=== PATIENT | female | born 1990 | race Caucasian/White ===

== ENCOUNTER 2022-10-30 10:38 | Outpatient (AMB) | payer OTHER, SELFPAY ==
--- NOTE | 2022-10-30 10:42 | MHC.PC.OV ---
Vital Signs 10/30/22 10:43 Height 5 ft 6 in Weight 157 lb BMI 25.3 BP 118/70 Blood Pressure Location Rt brachial Position Sitting Pulse 74 Pulse Source Pulse Oximeter Pulse Oximetry (%) 98 Oxygen Delivery Method Room Air Intake Visit Reasons: finger pain left hand Allergies Environmental Allergy (Unknown, Uncoded 08/31/17 00:00) Medication List - Last Reconciled 10/30/22 by Loc Cruz MD albuterol sulfate 90 mcg/actuation (ProAir HFA) 1 inh inhalation QID PRN 30 days cetirizine (Zyrtec) 10 mg PO DAILY PRN 90 days Tobacco use date assessed: 10/30/22 Dental Screening Dental Screen Date: 10/30/22 Did you have a dental visit in the last 12 months?: No Did you have a dental problem in the last 6 months where you did not have access to dental care?: No Was dental information given to patient?: Patient has dentist HPI finger pain left hand HPI Details Patient is 32-year-old female who was last seen last year Came in today with few medical problems to talk about. Patient have developed rash on her hands left more than right which is pruritic irritated and inflamed now She works with liquids and also wear gloves. She is not sure if she is sensitive to latex For now I am treating her with prednisone and antibiotic to control the rash and then she will use the cream especially at night Patient also suffer from anxiety disorder, she has to autistic children 1 of them just started school when it was 1st day of school patient had another episode of shortness of breath and tingling in her right arm She fears leaving the house and worry a lot about her children. When she was younger she was treated with Lexapro it did help but she did not like the way she was feeling well taking the medication, she felt as if she had no emotions. She is willing to try medication again I have sent fluoxetine 10 mg capsules Patient also have a history of migraine headache 3 or 4 times a month and she is requesting of appointment with the neurologist to talk about it. She will return in 3 weeks for follow-up. She is also due for physical exam PFSH Family History Mother Mental health disorder Social History Housing: Apartment Patient Tobacco Use Status: Never used Tobacco e-Cigarette/Vaping Use: Never Used service: No Current occupational status: unemployed Cognitive needs: No Hearing needs: No Vision needs: No Questionnaire PHQ-9 Over the last 2 weeks, how often have you been bothered by any of the following problems? 1. Little interest or pleasure in doing things: not at all 2. Feeling down, depressed, or hopeless: not at all 3. Trouble falling or staying asleep, or sleeping too much: more than half the days 4. Feeling tired or having little energy: several days 5. Poor appetite or overeating: not at all 6. Feeling bad about yourself - or that you are a failure or have let yourself or your family down: not at all 7. Trouble concentrating on things, such as reading the newspaper or watching television: not at all 8. Moving or speaking so slowly that other people could have noticed. Or the opposite - being so fidgety or restless that you have been moving around a lot more than usual: not at all 9. Thoughts that you would be better off or of hurting yourself in some way: not at all Total score: 3 Depression Screening Interpretation: Negative 56252 - PHQ-9 Billing: Yes Source: Developed by Drs. Omar Lopez, Blanca Arnold, Rex Daugherty and colleagues, with an educational migdalia from [employer]. Thrive Questionnaire Date Thrive assessed: 10/30/22 I am a: Patient What is your living situation today?: I have a steady place to live Within the past 12 months, did the food you bought not last and you didn't have the money to get more?: Never true Within the past 12 months, did you worry whether your food would run out before you got money to buy more?: Never true Do you have trouble paying for medicines?: No Do you have trouble getting transportation to medical appointments?: No Do you have trouble paying your heating and electricity bill?: No Do you have trouble taking care of your child, family member or friend?: No Do you have trouble with day-to-day activities such as bathing, preparing meals, shopping, managing finances, etc.?: No Are you currently unemployed and looking for a job?: No Are you interested in more education?: Yes AUDIT C Alcohol Use Questionnaire (AUDIT-C) 1. How often do you have a drink containing alcohol?: 2-4 times a month 2. How many drinks containing alcohol do you have on a typical day when you are drinking?: 1 or 2 3. How often do you have six or more drinks on one occasion?: Never Total Score: 2 Score Reviewed/Action Taken: Yes LINETTE-7 AMB Questionnaire LINETTE-7 Date LINETTE - 7 assessed: 10/30/22 Feeling nervous, anxious, or on edge: 1 = Several days Not being able to stop or control worryin = Not at all Worrying too much about different things: 1 = Several days Trouble relaxin = Several days Being so restless that it is hard to sit still: 0 = Not at all Becoming easily annoyed or irritable: 0 = Not at all Feeling afraid as if something awful might happen: 0 = Not at all Total LINETTE-7 score (0-4 normal; 5-9 mild; 10-14 moderate; 15-21 severe): 3 Source: Developed by Drs. Omar Lopez, Blanca Arnold, Rex Daugherty and colleagues, with an educational migdalia from [employer]. LINETTE-7 Assessment Billing LINETTE-7 Assessment Tool: LINETTE-7 Assessment 67789 Review of Systems Const Denies chills and Denies fever(s) ENT Denies epistaxis and Denies nasal discharge Card Denies chest pain Resp Denies chest congestion, Denies cough and Denies hemoptysis GI Denies diarrhea and Denies nausea Neuro Reports no additional complaints Psych Reports no additional complaints Endo Reports no additional complaints Physical exam (Primary Care) Vital Signs: Last Vital Signs Pulse 74 10/30/22 10:43 BP 118/70 10/30/22 10:43 Pulse Ox 98 10/30/22 10:43 Oxygen Delivery Method Room Air 10/30/22 10:43 BMI result Body Mass Index 25.3 Tobacco/Smoking Status: Tobacco use Status Tobacco use date assessed 10/30/22 10/30/22 10:47 Patient Tobacco Use Status Never used Tobacco 10/30/22 10:47 e-Cigarette/Vaping Use Never Used 10/30/22 10:47 PHQ-9: PHQ-9 Score PHQ-9: Total score 3 10/30/22 11:17 Depression Screening Interpretation: Negative Thrive Assessment: Date of Thrive Assessment Date Thrive assessed 10/30/22 10/30/22 11:17 Const General: cooperative, comfortable and no acute distress Orientation/consciousness: patient oriented x3 HENMT Head: Yes normocephalic Eyes General: appearance normal, both eyes and all related structures Neck Neck: Yes supple Resp Effort & Inspection: normal respiratory effort, no cough and no stridor Skin General skin exam: turgor normal Neuro General: patient oriented x3, tone normal and moves all extremities Extrem Hand/finger images: 1. Physical ear maculopapular rash 2. Similar rash on right side but not as extensive 3. Similar rash extending into palm Right lower extremity: no edema Left lower extremity: no edema Assessment and Plan Assessment & Plan (1) Pruritic rash: Code(s): L28.2 - Other prurigo (2) Dermatitis: Code(s): L30.9 - Dermatitis, unspecified (3) Migraine headache without aura: Code(s): G43.009 - Migraine without aura, not intractable, without status migrainosus (4) Neurosis, anxiety, panic type: Code(s): F41.0 - Panic disorder [episodic paroxysmal anxiety] Plan Patient is 32-year-old female who was last seen last year Came in today with few medical problems to talk about. Patient have developed rash on her hands left more than right which is pruritic irritated and inflamed now She works with liquids and also wear gloves. She is not sure if she is sensitive to latex For now I am treating her with prednisone and antibiotic to control the rash and then she will use the cream especially at night Patient also suffer from anxiety disorder, she has to autistic children 1 of them just started school when it was 1st day of school patient had another episode of shortness of breath and tingling in her right arm She fears leaving the house and worry a lot about her children. When she was younger she was treated with Lexapro it did help but she did not like the way she was feeling well taking the medication, she felt as if she had no emotions. She is willing to try medication again I have sent fluoxetine 10 mg capsules Patient also have a history of migraine headache 3 or 4 times a month and she is requesting of appointment with the neurologist to talk about it. She will return in 3 weeks for follow-up. She is also due for physical exam Orders: Referrals Neurology Referral G43.009 - Migraine without aura, not intractable, without status migrainosus Medications: New prednisone 10 mg PO DAILY 5 tabs 0RF 5 days amoxicillin-pot clavulanate 875-125 mg 1 tab PO BID 10 tabs 0RF 5 days fluoxetine 10 mg PO DAILY 30 caps 0RF triamcinolone acetonide 0.1% 1 appl topical DAILY 80 grams 0RF Rash and 30 days Coding Level of Care Code Est Pt Level 4 (83899) Diagnoses Pruritic rash L28.2 Dermatitis L30.9 Migraine headache without aura G43.009 Neurosis, anxiety, panic type F41.0 Additional Codes LINETTE-7 Assessment Billing - LINETTE-7 Assessment Tool: LINETTE-7 Assessment 64865 ([id number])
[2022-10-30 10:43] VITALS: BP 118/70; PULSE 74; O2SAT 98; BMI 25.3
== END 2022-10-30 12:24 | disposition home or self-care (01) ==
PROVIDERS: PCP Internal Medicine; Visit Provider Internal Medicine
DX: G43.009 Migraine without aura, not intractable, without status migrainosus (principal); L28.2 Other prurigo; L30.9 Dermatitis, unspecified; F41.0 Panic disorder [episodic paroxysmal anxiety]
CPT/HCPCS: 99214

== ENCOUNTER 2023-01-18 08:47 | Outpatient (AMB) | payer OTHER, SELFPAY ==
[2023-01-18 10:33] VITALS: BP 118/72; PULSE 78; TEMP 36.6; O2SAT 98; BMI 25.5
--- NOTE | 2023-01-18 10:33 | MHC.OFFWIV ---
Intake Vital Signs 01/18/23 10:33 Height 5 ft 6 in Weight 158 lb BMI 25.5 BP 118/72 Blood Pressure Location Rt brachial Position Sitting Pulse 78 Pulse Source Pulse Oximeter Temp 97.8 F Temp Source Temporal Artery Scan Pulse Oximetry (%) 98 Intake Visit Reasons: EP Lft ear pain hearing loss Intake Note: pt is here for c/o left ear pain since wednesday, hearing impaired Patient Tobacco Use Status: Never used Tobacco Allergies Environmental Allergy (Unknown, Uncoded 01/18/23 10:56) Unknown Medication List - Last Reconciled 01/18/23 by Mekhi Le MD albuterol sulfate 90 mcg/actuation (ProAir HFA) 1 inh inhalation QID PRN 30 days Do you need a note to return to daycare/school/sports/work: Yes HPI EP Lft ear pain hearing loss HPI Details Patient presents for a sick visit. Reporting symptoms of sinus congestion, sore throat and difficulty swallowing. Low-grade fever. No family member is sick. No recent travel. Patient reports symptoms of malaise and fatigue. PFSH Family History Mother Mental health disorder Housing: Apartment Patient Tobacco Use Status: Never used Tobacco e-Cigarette/Vaping Use: Never Used service: No Current occupational status: unemployed Cognitive needs: No Hearing needs: No Vision needs: No Physical Exam Vital Signs: Last Vital Signs Temp 97.8 F 01/18/23 10:33 Pulse 78 01/18/23 10:33 BP 118/72 01/18/23 10:33 Pulse Ox 98 01/18/23 10:33 BMI result Body Mass Index 25.5 Const General: cooperative and healthy appearing Nutritional Appearance: well nourished Orientation/consciousness: patient oriented x3 Limitations: no limitations HEENT Head: Yes normal to inspection Eyes General: appearance normal, both eyes and all related structures Neck Neck: Yes normal visual inspection Chest Chest palpation & inspection: normal palpation of entire chest wall Resp Effort & Inspection: normal respiratory effort Neuro General: patient oriented x3 Assessment & Plan Assessment & Plan (1) Upper respiratory tract infection: Code(s): J06.9 - Acute upper respiratory infection, unspecified Plan: Antibiotics ordered. Increase fluid intake. Tylenol for aches and pains. If symptoms worsen, follow-up here for a recheck. Coding Level of Care Code Est Pt Level 3 (35358) Diagnoses Upper respiratory tract infection J06.9
== END 2023-01-18 11:04 | disposition home or self-care (01) ==
PROVIDERS: PCP Internal Medicine; Visit Provider Internal Medicine
DX: J06.9 Acute upper respiratory infection, unspecified (principal)
CPT/HCPCS: 99213

== ENCOUNTER 2023-05-28 09:58 | Outpatient (AMB) | payer OTHER, SELFPAY ==
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
[2023-05-28 10:02] VITALS: PULSE 72; O2SAT 98; BMI 25.3
== END 2023-05-28 11:27 | disposition home or self-care (01) ==
PROVIDERS: PCP Internal Medicine; Visit Provider Nurse Practitioner Family
DX: R51.9 Headache, unspecified (principal); R55 Syncope and collapse; R25.2 Cramp and spasm
CPT/HCPCS: 99204

== ENCOUNTER → 2023-05-28 09:58 | Outpatient (BNVA) | payer OTHER, SELFPAY | PROVIDERS: PCP Internal Medicine; Visit Provider Nurse Practitioner Family | DX: R51.9 Headache, unspecified (principal); R55 Syncope and collapse; R25.2 Cramp and spasm | CPT/HCPCS: 99202 ==

== ENCOUNTER 2023-06-02 09:13 | Outpatient (REF) | payer OTHER, SELFPAY ==
[2023-06-02 17:24] LABS: Iron 111 mcg/dL (30-160); Magnesium 2.2 mg/dL (1.6-2.6); Percent Iron Saturation 37 % (15-50); Total Iron Binding Capacity 300 mcg/dL (228-428); Unsaturated Iron Binding 189 ug/dL
[2023-06-02 17:26] LABS: Estimated Average Glucose 105 mg/dL; Hemoglobin A1c % 5.3 % (<6.0)
[2023-06-02 17:40] LABS: Ferritin 95 ng/mL (10-122)
[2023-06-02 18:52] LABS: Rheumatoid Factor < 13.0 IU/mL (<15.0)
[2023-06-02 19:04] LABS: Folate 11.2 ng/mL (> or = 4.0); Vitamin B12 371 pg/mL (200-900)
[2023-06-02 19:50] LABS: Erythrocyte Sedimentation Rate 8 MM/HR (0-20)
[2023-06-03 14:37] LABS: CRP High Sensitivity 1.3 mg/L
[2023-06-05 14:09] LABS: Vitamin D 25-OH, D2 <4 ng/mL; Vitamin D 25-OH, D3 19 ng/mL; Vitamin D 25-OH, Total 19 ng/mL (30-100)
[2023-06-06 10:54] LABS: Anti Nuclear Antibody Screen NEGATIVE (NEGATIVE)
== END 2023-06-02 09:14 | disposition home or self-care (01) ==
LOC: HO.HKASLDS 09:13
PROVIDERS: Visit Provider Nurse Practitioner Family
DX: R51.9 Headache, unspecified (principal); R55 Syncope and collapse; R06.02 Shortness of breath; L30.9 Dermatitis, unspecified; R20.2 Paresthesia of skin; R25.2 Cramp and spasm
CPT/HCPCS: 36415; 82306; 82550; 82607; 82728; 82746; 83036; 83540; 83735; 84443; 85652; 86038; 86141; 86431

== ENCOUNTER → 2024-06-06 09:29 | Outpatient (AMB) | payer OTHER, SELFPAY ==
[2024-06-06 09:37] VITALS: BP 132/98; PULSE 87; O2SAT 97; BMI 25.6
--- NOTE | 2024-06-06 09:37 | A.OFFPC_ITS ---
Vital Signs 06/06/24 09:37 Height 5 ft 6 in Weight 158 lb 8 oz BMI 25.6 BP 132/98 H Blood Pressure Location Lt brachial Position Sitting Pulse 87 Pulse Source Pulse Oximeter Pulse Oximetry (%) 97 Oxygen Delivery Method Room Air Intake Visit Reasons: knee/leg pain Allergies Environmental Allergy (Unknown, Uncoded 05/28/23 10:04) Unknown Medication List - Last Reconciled 06/06/24 by Loc Cruz MD albuterol sulfate 90 mcg/actuation (ProAir HFA) 1 inh inhalation QID PRN 30 days Tobacco use date assessed: 06/06/24 Dental Screening Dental Screen Date: 06/06/24 Did you have a dental visit in the last 12 months?: No Did you have a dental problem in the last 6 months where you did not have access to dental care?: No Was dental information given to patient?: Patient has dentist HPI knee/leg pain HPI Details History - The patient is a 34-year-old female pr esenting with persistent bilateral knee pain. - Initially, the pain was localized to t he right knee and has recently been experienced in the left knee as well. - The pain occurs spontaneously during a ctivities such as sitting regularly or driving, radiating from the knee down the legs, and has been persistent at times. - The onset of knee pain began approxima tely a month and a half ago, first noted primarily in the right knee before involving the left knee. - The episodes of pain have been describ ed as recurring, with symptom alleviation occurring after short rest periods, but persistent episodes lasted over a weekend. - The patient denies any associated swel ling or tenderness upon palpation. - No additional joint involvement noted, except for occasional shoulder discomfort attributed to sleeping position. - The patient has a family history notab le for breast cancer and high blood pressure. - It is noted that a low Vitamin D level was identified previously, and no supplementation has been initiated by the patient. Problem List - Bilateral Knee Pain migratory Patient Instructions - Begin Vitamin D supplementation as pre viously discussed due to low levels. - Return tomorrow for scheduled blood wo rk, including testing for Lyme disease and lupus. - Monitor symptoms of knee pain and repo rt any changes or increases in pain, swelling, or other concerning symptoms. - There is no need to fast before tomorr ow's blood work; attend the lab between 6:30 AM and 3:30 PM at your convenience. - Continue daily activities as tolerated and avoid any activities that exacerbate knee pain. Review of Systems - General: No fever no chills - Neurological: No headaches no dizziness - Ear nose throat: No sore throat no hearing difficulty no ear pain - Cardiovascular: No syncope, no chest pain, no palpitations - Gastrointestinal: No nausea vomiting or diarrhea - Endocrine: No polyuria polydipsia no heat intolerance - Genitourinary: No dysuria , no blood in urine Physical Exam General: No acute distress HEENT: No acute findings Neck: Supple Respiratory system: Able to talk in full sentences, no audible wheeze Cardiovascular: S1-S2 regular in rate and rhythm Gastrointestinal: No pain Extremities: No pain in knees at this time, no swelling, no tenderness on palpation CHIEF PRIVACY OFFICER: Alert awake oriented x3 motor sensory intact Skin: Normal turgor PFSH Family History Mother Mental health disorder Breast cancer in female Social History Housing: Apartment Patient Tobacco Use Status: Never used Tobacco e-Cigarette/Vaping Use: Never Used service: No Current occupational status: unemployed Cognitive needs: No Hearing needs: No Vision needs: No Questionnaire PHQ-9 Over the last 2 weeks, how often have you been bothered by any of the following problems? 02736 - PHQ-9 Billing: Patient declined-do not bill Source: Developed by Drs. Omar Lopez, Blanca Arnold, Rex Daugherty and colleagues, with an educational migdalia from [employer]. Thrive Questionnaire Date Thrive assessed: 06/06/24 I am a: Patient What is your living situation today?: I have a steady place to live Within the past 12 months, did the food you bought not last and you didn't have the money to get more?: Never true Within the past 12 months, did you worry whether your food would run out before you got money to buy more?: Never true Do you have trouble paying for medicines?: No Do you have trouble getting transportation to medical appointments?: No Do you have trouble paying your heating and electricity bill?: No Do you have trouble taking care of your child, family member or friend?: No Do you have trouble with day-to-day activities such as bathing, preparing meals, shopping, managing finances, etc.?: No Are you currently unemployed and looking for a job?: No Are you interested in more education?: No Please select the resources that you would like help with: None Currently or been in a relationship where the following occur: No concerns reported THRIVE Score: 0 AUDIT C Alcohol Use Questionnaire (AUDIT-C) 1. How often do you have a drink containing alcohol?: 2-4 times a month 2. How many drinks containing alcohol do you have on a typical day when you are drinking?: 1 or 2 3. How often do you have six or more drinks on one occasion?: Never Total Score: 2 Score Reviewed/Action Taken: Yes LINETTE-7 AMB Questionnaire LINETTE-7 Date LINETTE - 7 assessed: 06/06/24 Feeling nervous, anxious, or on edge: 0 = Not at all Not being able to stop or control worryin = Not at all Worrying too much about different things: 0 = Not at all Trouble relaxin = Not at all Being so restless that it is hard to sit still: 0 = Not at all Becoming easily annoyed or irritable: 0 = Not at all Feeling afraid as if something awful might happen: 0 = Not at all Total LINETTE-7 score (0-4 normal; 5-9 mild; 10-14 moderate; 15-21 severe): 0 Source: Developed by Drs. Omar Lopez, Blanca Arnold, Rex Daugherty and colleagues, with an educational migdalia from [employer]. LINETTE-7 Assessment Billing LINETTE-7 Assessment Tool: LINETTE-7 Assessment 21641 Physical exam (Primary Care) Vital Signs: Last Vital Signs Pulse 87 06/06/24 09:37 BP 132/98 H 06/06/24 09:37 Pulse Ox 97 06/06/24 09:37 Oxygen Delivery Method Room Air 06/06/24 09:37 BMI result Body Mass Index 25.6 Tobacco/Smoking Status: Tobacco use Status Tobacco use date assessed 06/06/24 06/06/24 09:40 Patient Tobacco Use Status Never used Tobacco 06/06/24 09:40 e-Cigarette/Vaping Use Never Used 06/06/24 09:40 Thrive Assessment: Date of Thrive Assessment Date Thrive assessed 06/06/24 06/06/24 09:40 Currently or been in a relationship where the following occur: No concerns reported Coding Level of Care Code Est Pt Level 4 (89137) 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 - Initially, the pain was localized to the right knee and has recently been experienced in the left knee as well. - The pain occurs spontaneously during activities such as sitting regularly or driving, radiating from the knee down the legs, and has been persistent at times. - The onset of knee pain began approximately a month and a half ago, first noted primarily in the right knee before involving the left knee. - The episodes of pain have been described as recurring, with symptom alleviation occurring after short rest periods, but persistent episodes lasted over a weekend. - The patient denies any associated swelling or tenderness upon palpation. - No additional joint involvement noted, except for occasional shoulder discomfort attributed to sleeping position. - The patient has a family history notable for breast cancer and high blood pressure. - It is noted that a low Vitamin D level was identified previously, and no supplementation has been initiated by the patient. Problem List - Bilateral Knee Pain migratory Patient Instructions - Begin Vitamin D supplementation as previously discussed due to low levels. - Return tomorrow for scheduled blood work, including testing for Lyme disease and lupus. - Monitor symptoms of knee pain and report any changes or increases in pain, swelling, or other concerning symptoms. - There is no need to fast before tomorrow's blood work; attend the lab between 6:30 AM and 3:30 PM at your convenience. - Continue daily activities as tolerated and avoid any activities that exacerbate knee pain. Orders: Orders Venous Lead Today M13.80 - Other specified arthritis, unspecified site C Reactive Protein Today M13.80 - Other specified arthritis, unspecified site Lyme IgG/IgM w/reflex to WB Today M13.80 - Other specified arthritis, unspecified site Complete Blood Count Auto Diff Today M13.80 - Other specified arthritis, unspecified site Comprehensive Met. Panel Today M13.80 - Other specified arthritis, unspecified site Vitamin D 25-OH (D2 and D3) Today M13.80 - Other specified arthritis, unspecified site TSH reflex Free T4 Today M13.80 - Other specified arthritis, unspecified site Erythrocyte Sedimentation Rate Today M13.80 - Other specified arthritis, unspecified site Anti DNA DS Antibody Today M13.80 - Other specified arthritis, unspecified site, R76.8 - Other specified abnormal immunological findings in serum Medications: New cholecalciferol (vitamin D3) 25 mcg PO DAILY 90 caps 1RF 90 days
== END ==
LOC: HO.HMCC 09:29
PROVIDERS: PCP Internal Medicine; Visit Provider Internal Medicine
DX: M13.80 Other specified arthritis, unspecified site (principal); E55.9 Vitamin D deficiency, unspecified

== ENCOUNTER → 2024-06-06 09:29 | Outpatient (BNVA) | payer OTHER, SELFPAY | PROVIDERS: PCP Internal Medicine; Visit Provider Internal Medicine | DX: M25.561 Pain in right knee (principal); M25.562 Pain in left knee; M13.80 Other specified arthritis, unspecified site; E55.9 Vitamin D deficiency, unspecified; R76.8 Other specified abnormal immunological findings in serum | CPT/HCPCS: 96127; 99212 ==

== ENCOUNTER 2024-06-07 09:32 | Outpatient (REF) | payer OTHER, SELFPAY ==
[2024-06-07 13:20] LABS: MANUAL DIFF FLAG NO
[2024-06-07 13:21] LABS: Basophils Absolute Auto 0.1 X10*3/uL (0.0-0.2); Basophils Percent Auto 0.8 % (0-2); Eosinophils Absolute Auto 0.1 X10*3/uL (0.0-0.4); Hematocrit 42.9 % (37.0-47.0); Hemoglobin 14.7 g/dl (12.0-16.0); Imm Gran Abs Auto 0.02 X10*3/uL (0.00-0.03); Imm Gran Pct Auto 0.3 % (0.0-0.4); Lymphocytes Absolute Auto 1.9 X10*3/uL (1.2-4.9); Mean Corpuscular HGB Conc 34.3 g/dl (31.0-35.0); Mean Corpuscular Hemoglobin 30.7 pg (27.0-33.0); Mean Corpuscular Volume 89.6 fL (80.0-98.0); Monocytes Absolute Auto 0.6 X10*3/uL (0.1-1.2); Monocytes Percent Auto 10.2 % (2-11); Neutrophils Absolute Auto 3.3 x10*3/uL (2.0-8.3); Neutrophils Percent Auto 55.7 % (45-73); Platelet Count 194 X10*3/uL (160-400); Red Blood Count 4.79 X10*6/uL (4.20-5.50); Red Cell Distribution Width 12.1 % (11.0-16.0); White Blood Count 5.9 X10*3/uL (4.8-10.8)
[2024-06-07 13:57] LABS: Erythrocyte Sedimentation Rate 5 MM/HR (0-20)
[2024-06-07 13:58] LABS: Alanine Aminotransferase 23 U/L (0-31); Albumin Level 4.8 g/dL (3.5-5.0); Alkaline Phosphatase 58 U/L (39-117); Anion Gap 12 (12-20); Aspartate Amino Transferase 22 U/L (5-31); Bilirubin Total 0.4 mg/dL (0.0-1.0); Blood Urea Nitrogen 14 mg/dL (9-16); C Reactive Protein < 0.10 mg/dL (< or = 0.50); Calcium 10.2 mg/dL (8.4-10.2); Carbon Dioxide 23 mmol/L (22-29); Chloride 108 mmol/L (96-108); Estimated Glomerular Filt Rate > 60; Glucose Random 95 mg/dL (60-115); Potassium 4.3 mmol/L (3.3-5.1); Sodium 139 mmol/L (135-145); Total Protein 7.6 g/dL (6.5-8.0)
[2024-06-07 14:06] LABS: TSH reflex Free T4 0.68 uIU/mL (0.32-4.0)
[2024-06-08 06:23] LABS: Lyme Abs Screen <0.90 index
[2024-06-08 21:14] LABS: Venous Lead <1.0 mcg/dL (<3.5)
[2024-06-12 14:44] LABS: Vitamin D 25-OH, D2 <4 ng/mL; Vitamin D 25-OH, D3 7 ng/mL; Vitamin D 25-OH, Total 7 ng/mL (30-100)
[2024-06-12 18:29] LABS: Anti DNA DS Antibody <1 IU/mL
== END 2024-06-07 09:33 | disposition home or self-care (01) ==
LOC: HO.HMGCLDS 09:32
PROVIDERS: PCP Internal Medicine; Visit Provider Internal Medicine
DX: M13.80 Other specified arthritis, unspecified site (principal); R76.8 Other specified abnormal immunological findings in serum
CPT/HCPCS: 36415; 80053; 82306; 83655; 84443; 85025; 85652; 86140; 86225; 86617; 86618

== ENCOUNTER 2024-07-04 08:31 | Outpatient (AMB) | payer OTHER, SELFPAY ==
[2024-07-04 08:36] VITALS: BP 118/80; PULSE 89; O2SAT 98; BMI 25.6
--- NOTE | 2024-07-04 08:36 | A.OFFPC_ITS ---
Vital Signs 07/04/24 08:36 Height 5 ft 6 in Weight 158 lb 6 oz BMI 25.6 BP 118/80 Blood Pressure Location Rt brachial Position Sitting Pulse 89 Pulse Source Pulse Oximeter Pulse Oximetry (%) 98 Oxygen Delivery Method Room Air Intake Visit Reasons: follow up/ labs Allergies Environmental Allergy (Unknown, Uncoded 05/28/23 10:04) Unknown Medication List - Last Reconciled 07/04/24 by Loc Cruz MD albuterol sulfate 90 mcg/actuation (ProAir HFA) 1 inh inhalation QID PRN 30 days cholecalciferol (vitamin D3) 25 mcg PO DAILY 90 days Tobacco use date assessed: 06/06/24 Dental Screening Dental Screen Date: 06/06/24 HPI follow up/ labs HPI Details History - The patient is a 34-year-old female pr esenting to go over labs, her knee pain is better, however continued to have some soreness in right knee and leg - The patient reports that the pain is m ostly located on the right side and mentions experiencing it constantly. - There is an improvement noted as the p atient reports that the left side pain is no longer as much of an issue. - She had not been engaging in much phys ical activity with her legs, and the pain modestly improved without active intervention. - Laboratory tests were conducted, and a side from a low vitamin D level, no other abnormalities were found (negative for lupus and Lyme disease; CBC normal, no anemia or deficiencies, kidney function and electrolytes normal, blood sugar normal, liver enzymes normal). - Current vitamin D level is significant ly low, resulting in fatigue and muscle tiredness. - The patient has been self-administerin g 1000 units of vitamin D for about a week. - Additionally, the patient requests the renewal of an inhaler prescription for managing asthma symptoms. Problem List - Vitamin D Deficiency - Chronic Pain in Right Leg/knee, better with OTC NSAIDs - Asthma Patient Instructions - Take high-dose vitamin D once a week f or three months. - After completing the high-dose regimen , continue taking hkqp-lud-[id number] vitamin D at 1000 units daily. - Use naproxen if the leg pain becomes b othersome. - Book a physical exam in six months and expect blood work to be done at that time. - An order for blood tests is in the [facility] tem and will require fasting beforehand. - Continue using the prescribed inhaler as needed. Review of Systems - General: No fever no chills - Neurological: No headaches no dizziness - Ear nose throat: No sore throat no hearing difficulty no ear pain - Cardiovascular: No syncope, no chest pain, no palpitations - Gastrointestinal: No nausea vomiting or diarrhea - Endocrine: No polyuria polydipsia no heat intolerance - Genitourinary: No dysuria , no blood in urine Physical Exam General: No acute distress HEENT: No acute findings Neck: Supple Respiratory system: Able to talk in full sentences, no audible wheeze, requires inhaler Cardiovascular: S1-S2 regular in rate and rhythm Gastrointestinal: No pain Extremities: No swelling of knee no pain with palpation of lower leg STARS ANALYTICAL LEAD: Alert awake oriented x3 motor sensory intact Skin: Normal turgor PFSH Family History Mother Mental health disorder Breast cancer in female Social History Housing: Apartment Patient Tobacco Use Status: Never used Tobacco e-Cigarette/Vaping Use: Never Used service: No Current occupational status: unemployed Cognitive needs: No Hearing needs: No Vision needs: No Questionnaire PHQ-9 Over the last 2 weeks, how often have you been bothered by any of the following problems? 1. Little interest or pleasure in doing things: not at all 2. Feeling down, depressed, or hopeless: not at all 3. Trouble falling or staying asleep, or sleeping too much: not at all 4. Feeling tired or having little energy: not at all 5. Poor appetite or overeating: not at all 6. Feeling bad about yourself - or that you are a failure or have let yourself or your family down: not at all 7. Trouble concentrating on things, such as reading the newspaper or watching television: not at all 8. Moving or speaking so slowly that other people could have noticed. Or the opposite - being so fidgety or restless that you have been moving around a lot more than usual: not at all 9. Thoughts that you would be better off or of hurting yourself in some way: not at all Total score: 0 Depression Screening Interpretation: Negative Depression Screening Done: Yes [id number] - PHQ-9 Billing: Yes Source: Developed by Drs. Omar Lopez, Blanca Arnold, Rex Daugherty and colleagues, with an educational migdalia from [employer]. Thrive Questionnaire Date Thrive assessed: 06/06/24 I am a: Patient What is your living situation today?: I have a steady place to live Within the past 12 months, did the food you bought not last and you didn't have the money to get more?: I choose not to answer this question Within the past 12 months, did you worry whether your food would run out before you got money to buy more?: I choose not to answer this question Do you have trouble paying for medicines?: No Do you have trouble getting transportation to medical appointments?: No Do you have trouble paying your heating and electricity bill?: No Do you have trouble taking care of your child, family member or friend?: No Do you have trouble with day-to-day activities such as bathing, preparing meals, shopping, managing finances, etc.?: No Are you currently unemployed and looking for a job?: No Are you interested in more education?: No Please select the resources that you would like help with: None Currently or been in a relationship where the following occur: I choose not to answer THRIVE Score: 0 AUDIT C Alcohol Use Questionnaire (AUDIT-C) 1. How often do you have a drink containing alcohol?: Monthly or less 2. How many drinks containing alcohol do you have on a typical day when you are drinking?: 1 or 2 3. How often do you have six or more drinks on one occasion?: Monthly Total Score: 3 LINETTE-7 AMB Questionnaire LINETTE-7 Date LINETTE - 7 assessed: 06/06/24 Feeling nervous, anxious, or on edge: 1 = Several days Not being able to stop or control worryin = Not at all Worrying too much about different things: 0 = Not at all Trouble relaxin = Not at all Being so restless that it is hard to sit still: 0 = Not at all Becoming easily annoyed or irritable: 0 = Not at all Feeling afraid as if something awful might happen: 0 = Not at all Total LINETTE-7 score (0-4 normal; 5-9 mild; 10-14 moderate; 15-21 severe): 1 Source: Developed by Drs. Omar Lopez, Blanca Arnold, Rex Daugherty and colleagues, with an educational migdalia from [employer]. Physical exam (Primary Care) Vital Signs: Last Vital Signs Pulse 89 07/04/24 08:36 BP 118/80 07/04/24 08:36 Pulse Ox 98 07/04/24 08:36 Oxygen Delivery Method Room Air 07/04/24 08:36 BMI result Body Mass Index 25.6 Tobacco/Smoking Status: Tobacco use Status Tobacco use date assessed 06/06/24 07/04/24 08:39 Patient Tobacco Use Status Never used Tobacco 07/04/24 08:39 e-Cigarette/Vaping Use Never Used 07/04/24 08:39 PHQ-9: PHQ-9 Score PHQ-9: Total score 0 07/04/24 08:44 Depression Screening Interpretation: Negative Thrive Assessment: Date of Thrive Assessment Date Thrive assessed 06/06/24 07/04/24 08:39 Currently or been in a relationship where the following occur: I choose not to answer Coding Level of Care Code Est Pt Level 3 (02286) Diagnoses Vitamin D deficiency E55.9 Chronic pain of right knee M25.561; G89.29 Chronicity: chronic Additional Codes PHQ-9 - 41348 - PHQ-9 Billing: Yes ([id number]) Assessment & Plan Assessment & Plan (1) Vitamin D deficiency: Code(s): E55.9 - Vitamin D deficiency, unspecified Category: Medical (2) Knee pain, right: Code(s): M25.561 - Pain in right knee Category: Medical Qualifiers: Chronicity: chronic Qualified Code(s): M25.561 - Pain in right knee; G89.29 - Other chronic pain Plan History - The patient is a 34-year-old female presenting to go over labs, her knee pain is better, however continued to have some soreness in right knee and leg - The patient reports that the pain is mostly located on the right side and mentions experiencing it constantly. - There is an improvement noted as the patient reports that the left side pain is no longer as much of an issue. - She had not been engaging in much physical activity with her legs, and the pain modestly improved without active intervention. - Laboratory tests were conducted, and aside from a low vitamin D level, no other abnormalities were found (negative for lupus and Lyme disease; CBC normal, no anemia or deficiencies, kidney function and electrolytes normal, blood sugar normal, liver enzymes normal). - Current vitamin D level is significantly low, resulting in fatigue and muscle tiredness. - The patient has been self-administering 1000 units of vitamin D for about a week. - Additionally, the patient requests the renewal of an inhaler prescription for managing asthma symptoms. Problem List - Vitamin D Deficiency - Chronic Pain in Right Leg/knee, better with OTC NSAIDs - Asthma Patient Instructions - Take high-dose vitamin D once a week for three months. - After completing the high-dose regimen, continue taking uktu-nfh-wowasfw vitamin D at 1000 units daily. - Use naproxen if the leg pain becomes bothersome. - Book a physical exam in six months and expect blood work to be done at that time. - An order for blood tests is in the system and will require fasting beforehand. - Continue using the prescribed inhaler as needed. = Orders: Orders Vitamin D 25-OH (D2 and D3) Today Z83.438 - Family history of other disorder of lipoprotein metabolism and other lipidemia Lipid Panel Today Z83.438 - Family history of other disorder of lipoprotein metabolism and other lipidemia Medications: New ergocalciferol (vitamin D2) 1,250 mcg PO QWEEK 90 days 13 caps 0RF Changed From albuterol sulfate 90 mcg/actuation (ProAir HFA) 1 inh inhalation QID 30 days PRN 18 grams 0RF shortness of breath or wheezing To albuterol sulfate 90 mcg/actuation 1 inh inhalation QID 30 days PRN 18 grams 3RF shortness of breath or wheezing
== END 2024-07-04 08:48 | disposition home or self-care (01) ==
LOC: HO.HMCC 08:32
PROVIDERS: PCP Internal Medicine; Visit Provider Internal Medicine
DX: E55.9 Vitamin D deficiency, unspecified (principal); M25.561 Pain in right knee; G89.29 Other chronic pain

== ENCOUNTER → 2024-07-04 08:31 | Outpatient (BNVA) | payer OTHER, SELFPAY | PROVIDERS: PCP Internal Medicine; Visit Provider Internal Medicine | DX: E55.9 Vitamin D deficiency, unspecified (principal); M25.561 Pain in right knee; G89.29 Other chronic pain; J45.909 Unspecified asthma, uncomplicated | CPT/HCPCS: 96127; 99212 ==

== ENCOUNTER 2024-11-01 08:24 | Outpatient (AMB) | payer OTHER, SELFPAY ==
[2024-11-01 08:32] VITALS: BP 120/68; PULSE 78; BMI 25.6
--- NOTE | 2024-11-01 08:32 | MHC.OFFVIS ---
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 She reports syncope a year and a half ago, characterized by abdominal pain, heat sensation, and lightheadedness. She has experienced complete loss of consciousness once, resulting in a fall. The patient also experiences dizziness, particularly upon standing, and suffers from migraines that have increased in frequency and severity. Occasional sensations of heart fluttering. No previously diagnosed cardiac issues. [facility] Medical History (Updated 11/01/24 @ 09:08 by Papito Jackson MD) Migraine Family History (Updated 11/01/24 @ 08:43 by Monie Boston) Mother Mental health disorder Breast cancer in female Father Heart attack Paternal Aunt Leukemia Social History (Updated 11/01/24 @ 08:43 by Monie Boston) Housing: Apartment Alcohol intake: current Alcohol intake frequency: holidays/special occasions only Patient Tobacco Use Status: Never used Tobacco e-Cigarette/Vaping Use: Never Used service: No Current occupational status: unemployed Cognitive needs: No Hearing needs: No Vision needs: No Review of Systems Const Reports headache(s) and Denies weakness ENT Reports dizziness and Reports headache(s) Card Reports chest pain, Denies chest pain with activity, Reports syncope, Denies rapid heart rate, Denies pedal edema, Denies edema, Denies leg edema, Reports lightheadedness, Reports palpitations, Reports dyspnea, Denies dyspnea on exertion and Denies orthopnea Resp Denies cough, Reports dyspnea and Denies dyspnea on exertion GI Denies hematochezia and Denies change in stool character Musc Denies abnormal gait, Reports myalgias, Denies muscle cramps, Denies muscle weakness, Denies numbness, Denies radiating pain into limb and Denies tingling Neuro Denies abnormal gait, Reports dizziness, Reports syncope, Reports headache(s), Denies numbness, Denies tingling and Denies weakness Endo Reports palpitations Physical Exam Vital Signs: Last Vital Signs Pulse 78 11/01/24 08:32 BP 120/68 11/01/24 08:32 BMI result Body Mass Index 25.6 Const General: comfortable and no acute distress Orientation/consciousness: patient oriented x3 HEENT Other: Unremarkable Head: Yes normal to inspection Neck Neck: Yes normal visual inspection Chest Chest palpation & inspection: normal inspection of the chest Resp Auscultation: clear to auscultation bilaterally Cardio Palpation: normal PMI Heart sounds: S1 normal heart sound present, S2 normal heart sound present, no gallops, no murmurs and no rubs GI Palpation (GI): Soft to palpation Back/Spine/Pelvis Other: unremarkable Skin General skin exam: no rashes or lesions noted Neuro General: patient oriented x3 Extrem General: Yes normal to inspection Psych Mental Status: mental status grossly normal Office Procedures EKG Details: EKG with underlying sinus rhythm at 78/Min; premature ventricular contraction; [place] [id number], Complete Assessment & Plan Assessment & Plan (1) Syncope and collapse: Code(s): R55 - Syncope and collapse Category: Medical Plan: Sounds vasovagal in nature. Main recommendation would be to avoid triggers and keep herself well hydrated. We will obtain an echocardiogram and Holter monitor. (2) PVC (premature ventricular contraction): Code(s): I49.3 - Ventricular premature depolarization Category: Medical Plan: PVC noted on Holter but doubt if it has anything to do with the syncopal episode. We can review of anything significant on the Holter. Plan Discussion Notes During the consultation, we discussed the potential diagnosis of vasovagal syncope and the presence of premature ventricular contractions. I explained the plan to monitor these conditions with an echo and Holter monitor and reassured the patient that her blood pressure and lab results are normal. Patient was informed and verbally consented to the use of an ambient scribe for clinic note documentation during this visit. Orders: Orders CA echo transthoracic complete Today R55 - Syncope and collapse ECG 14 day holter monitor Today R55 - Syncope and collapse Patient Instructions: - Monitor for any episodes of dizziness or syncope and note any potential triggers. - Follow up for Holter monitor placement to evaluate heart rhythm. Coding Level of Care Code New Pt Level 4 (62955) Diagnoses Syncope and collapse R55 PVC (premature ventricular contraction) I49.3 CPT Codes EKG - CPT: 15965-[id number], Complete ([id number])
== END 2024-11-01 08:58 | disposition home or self-care (01) ==
LOC: HO.HCS 08:24
PROVIDERS: PCP Internal Medicine; Visit Provider Internal Medicine
DX: R55 Syncope and collapse (principal); I49.3 Ventricular premature depolarization
CPT/HCPCS: 93010; 99204

== ENCOUNTER → 2024-11-01 08:24 | Outpatient (BNVA) | payer OTHER, SELFPAY | PROVIDERS: PCP Internal Medicine; Visit Provider Internal Medicine | DX: I49.3 Ventricular premature depolarization (principal); R55 Syncope and collapse | CPT/HCPCS: 93005; 99202 ==

== ENCOUNTER → 2024-12-13 09:09 | Outpatient (REF) | payer OTHER, SELFPAY ==
--- NOTE | 2024-12-13 09:21 | CA_ITS ---
Transthoracic Echocardiogram Patient (Last, First, Middle): Beth Pereira, Gender: F Date of : 1990 Age: 34 Procedure Date: 12/13/2024 Procedure Type: Transthoracic Echocardiogram Location: OP Height: 167.64 cm Weight: 71.67 kg BSA: 1.81 m2 Heart Rate: bpm BP: 120 / 68 mmHg Floor Space Allocator: ROQUE Referring MD: Papito Jackson MD Doctor Chiropractic: Fritz Schreiber MD Symptoms: R55 - Syncope and collapse Study Quality: Fair ECG Rhythm: Sinus Conclusions: - Normal study Findings Left Ventricle Normal left ventricular size, thickness, and systolic function. The visually estimated ejection fraction is between 60-65%. Diastolic function is normal for age. Right Ventricle Normal right ventricular cavity size and systolic function. Atria Both atria are normal in size. There is no evidence of interatrial shunt. Aortic Valve Normal aortic valve structure and function. There is no aortic valve stenosis. There is no aortic valve regurgitation. Mitral Valve Normal mitral valve structure and function. There is trace mitral valve regurgitation. There is no mitral valve stenosis. Pulmonic Valve The pulmonic valve is likely normal. Tricuspid Valve Normal tricuspid valve structure. There is trace tricuspid valve regurgitation. The right ventricular systolic pressure is normal. The right ventricular systolic pressure is 16 mmHg. Normal right atrial pressure. There is no evidence of pulmonary hypertension. Great Vessels All visible segments of the aorta are normal in size. The visualized portions of the pulmonary artery and branches are normal. Venous The inferior vena cava is normal in size and collapses greater than 50% with inspiration. Pericardium/Pleural There is no evidence of pericardial effusion. Prior Study Comparison No prior study available for comparison. Measurements 2D Linear Measurements IVSd: 0.76 0.6-0.9/0.6-1.0 cm LVIDd: 4.21 3.9-5.3/4.2-5.9 cm LVIDd Index: 2.33 2.4-3.2/2.2-3.1 cm/m2 LVIDs: 2.90 2.0-3.6 cm LVPWd: 0.83 0.7-1.1 cm LA Diam: 2.90 2.7-3.8/3.0-4.0 cm LAIDs Index: 1.60 1.5-2.3 cm/m2 LV Mass: 125.84 67-162/88-224 g LV Mass Index: 69.52 43-95/49-115 g/m2 LVOT Diam: 1.90 3.0+(-)1.3 cm 2D Systolic Function EF 4C: 59.90 >55% EF 2C: 66.10 >55% EF BiP: 62.60 >55% Mitral Valve MV Pk E: 0.72 MV PK A: 0.41 MV Decel Time: 298.00 E/A: 1.70 E'Lateral: 15.10 E'Medial: 11.00 E/E' Med: 6.50 E/E' Lat: 4.70 PHT: 87.00 MVA PHT: 2.53 Decel [place]: 2.41 Aortic Valve AoV Pk Aneesh: 1.22 AoV Mn Aneesh: 0.95 AoV VTI: 0.30 AoV Pk Grad: 6.00 Aov Mn Grad: 4.00 DELIA Cont.VTI: 1.92 LVOT LVOT Pk Aneesh: 1.00 LVOT Mn Aneesh: 0.64 LVOT VTI: 0.20 LVOT Pk Grad: 4.00 LVOT Mn Grad: 2.00 LVOT Diam: 1.90 LVOT Area: 2.84 Diastolic Function MV Pk E: 0.72 MV Pk A: 0.41 E/A: 1.70 E'Medial: 11.00 E/E' Med: 6.50 E' Laterial: 15.10 E/E' Lat: 4.70 Right Ventricle TAPSE (mm): 28.40 TVS' Aneesh: 13.90 Tricuspid Valve TR Pk Aneesh: 1.37 TR Pk Grad: 8.00 RA Press: 8.00 RVSP: 16.00 Great Vessels Aorta Sinus of Valsalva: 3.04 2.0-3.5 cm Ao Asc: 2.90 2.1-3.4 cm Ao Arch: 2.90 Pulmonary Veins Pulm Vein S/D 1.00 Updated in Other Vendor System with Status of Final Fritz Schreiber MD electronically signed on 12/14/2024 4:17:15 PM with status of Final
== END ==
LOC: HO.CARD 09:09
PROVIDERS: PCP Internal Medicine; Visit Provider Internal Medicine
DX: R55 Syncope and collapse (principal)
CPT/HCPCS: 93246; 93306

== ENCOUNTER → 2024-12-13 09:21 | Outpatient (BNV) | payer OTHER, SELFPAY | PROVIDERS: PCP Internal Medicine; Visit Provider Internal Medicine Cardiovascular Disease | DX: R55 Syncope and collapse (principal) | CPT/HCPCS: 93306 ==